=== PATIENT | female | born 1995 | race Caucasian/White ===

== ENCOUNTER 2019-06-23 16:30 | Outpatient (CLI) | payer BC, SELFPAY ==
--- NOTE | 2019-06-23 17:00 | DI.RAD_ITS ---
EXAM: XR WRIST LT COMPLETE INDICATION: TRAUMA, FELL ON WRIST LAST PM. COMPARISON: No exams were available for comparison TECHNIQUE: 2D digital imaging was performed. FINDINGS: There is no acute fracture or dislocation. The soft tissues are unremarkable. IMPRESSION: Negative examination.
== END 2019-06-23 16:50 ==
PROVIDERS: Visit Provider Family Medicine
DX: M25.532 Pain in left wrist (principal); W19.XXXA Unspecified fall, initial encounter
CPT/HCPCS: 73110